=== PATIENT | female | born 1940 | race Asian ===

== ENCOUNTER 2019-05-02 12:33 | Emergency (ER) | payer OTHER, MEDICAID ==
[~2019-05-02] VITALS: Ht 157.5 cm; Wt 59.9 kg
[2019-05-02 12:38] VITALS: Ht 157.5 cm; Wt 59.9 kg
[2019-05-02 13:26] LABS: BASOPHIL % 0.5 % (0-2); PLATELET COUNT 245 x10^3mcL (130-400); RED CELL DISTRIBUTION WIDTH 13.5 % (11.5-14.5)
[2019-05-02 13:45] LABS: CALCIUM 8.1 mg/dL (8.5-10.1); CARBON DIOXIDE 21.8 mmol/L (21-32); CHLORIDE SERUM 107 mmol/L (98-107); CREATININE SERUM 1.5 mg/dL (0.6-1.0); GLUCOSE SERUM 147 mg/dL (74-106); POTASSIUM SERUM 3.2 mmol/L (3.5-5.1); SODIUM SERUM 143 mmol/L (136-145)
[2019-05-02 13:50] LABS: ALKALINE PHOSPHATASE 64 U/L (46-116); ALT/SGPT 28 U/L (14-59); AST/SGOT 19 U/L (15-37); BILIRUBIN TOTAL 0.4 mg/dL (0.20-1.00); TOTAL PROTEIN, SERUM 6.7 g/dL (6.4-8.2)
[2019-05-02 13:51] LABS: ALBUMIN 3.3 g/dL (3.4-5.0)
[2019-05-02 13:58] VITALS: BP 144/78
== END 2019-05-02 14:24 | disposition home or self-care (01) ==
LOC: ED 12:33
PROVIDERS: Emergency Medicine
DX: M79.662 Pain in left lower leg (principal); M79.661 Pain in right lower leg; I10 Essential (primary) hypertension; E11.9 Type 2 diabetes mellitus without complications; Z88.8 Allergy status to other drugs, medicaments and biological substances
CPT/HCPCS: J1885